=== PATIENT | male | born 1945 | race Caucasian/White ===

== ENCOUNTER 2018-01-20 02:00 | Inpatient (IN) | payer OTHER ==
[2018-01-20] MEDS: SOD CHLORIDE 0.9% 500 ML IV (02:18)
[2018-01-20] MEDS: METOCLOPRAMIDE 10 MG INJ IV (02:18)
[2018-01-20] MEDS: ONDANSETRON 4 MG INJ IV (02:18)
[2018-01-20 02:19] LABS: ADD MAN DIFF? NO
[2018-01-20 02:24] LABS: WHITE BLOOD COUNT 9.6 10^3/ul (4.8-10.8)
[2018-01-20 02:24] LABS: ABNORMAL IP MESSAGE 1; BASOPHIL # 0.1 10^3/ul (0.0-0.1); BASOPHILS % 0.9 % (0.0-2.0); EOSINOPHILS # 0.3 10^3/ul (0.0-0.5); EOSINOPHILS % 3.1 % (0.0-7.0); HEMATOCRIT 41.2 % (42.0-52.0); HEMOGLOBIN 13.8 g/dl (14.0-18.0); LYMPHOCYTES # 5.9 10^3/ul (0.8-2.9); LYMPHOCYTES % 60.9 % (15.0-51.0); MEAN CORPUSCULAR HEMOGLOBIN 32.6 pg (29.0-33.0); MEAN CORPUSCULAR HGB CONC 33.5 g/dl (32.0-37.0); MEAN CORPUSCULAR VOLUME 97.4 fl (82.0-101.0); MEAN PLATELET VOLUME 11.5 fl (7.4-10.4); MONOCYTE # 0.8 10^3/ul (0.3-0.9); MONOCYTES % 8.5 % (0.0-11.0); NEUTROPHIL # 2.5 10^3/ul (1.6-7.5); NEUTROPHILS % 26.1 % (39.0-77.0); PLATELET COUNT 199 10^3/UL (140-415); POSITIVE DIFF @See below; RED BLOOD COUNT 4.23 10^6/ul (4.70-6.10); RED CELL DISTRIBUTION WIDTH 12.9 % (11.5-14.5)
[2018-01-20 02:41] LABS: ALANINE AMINOTRANSFERASE 28 IU/L (13-69); ALKALINE PHOSPHATASE 52 IU/L (42-121); ANION GAP 6 (5-13); ASPARTATE AMINO TRANSFERASE 14 IU/L (15-46); BILIRUBIN,INDIRECT 0.3 mg/dl (0-1.1); BILIRUBIN,TOTAL 0.3 mg/dl (0.2-1.3); BLOOD UREA NITROGEN 11 mg/dl (7-20); CALCIUM 7.3 mg/dl (8.4-10.2); CARBON DIOXIDE 19 mmol/L (21-31); CHLORIDE 120 mmol/L (97-110); CREATININE 0.66 mg/dl (0.61-1.24); GLUCOSE 136 mg/dl (70-220); SODIUM 145 mmol/L (135-144); TOTAL PROTEIN 5.5 g/dl (6.1-8.1)
[2018-01-20 02:43] LABS: INR 0.97
[2018-01-20 02:46] LABS: LACTIC ACID 2.2 mmol/L (0.5-2.0)
[2018-01-20 02:53] LABS: TROPONIN-I < 0.012 ng/ml (0.000-0.120)
[2018-01-20] MEDS: CEFEPIME 2GM/50 ML (PMX) 50 ML IVPB (03:01)
[2018-01-20] MEDS: SODIUM CHLORIDE 0.9% 1L BAG IV* (03:01)
[2018-01-20] MEDS: VANCOMYCIN 1 GM (PMX) 250 ML IVPB (03:43)
[2018-01-20] MEDS ORDERED: SOD CHLORIDE 0.9% 1,000 ML IV (07:47)
[2018-01-20 08:00] LABS: LACTIC ACID 2.7 mmol/L (0.5-2.0)
[2018-01-20] MEDS ORDERED: DOCUSATE SODIUM 100 MG CAP PO (08:00)
[2018-01-20] MEDS ORDERED: ONDANSETRON 4 MG INJ IV (08:00)
[2018-01-20] MEDS ORDERED: NACL 0.9% 3 ML SYG IV (08:00)
[2018-01-20] MEDS: NS + KCL 20 MEQ 1,000 ML IV ×3 (09:51→23:07)
[2018-01-20 11:23] LABS: LACTIC ACID 2.2 mmol/L (0.5-2.0)
[2018-01-20] MEDS: CEFTRIAXONE 1 GM/50 ML (PMX) 50 ML IVPB (12:00)
[2018-01-20 13:03] LABS: ADD UMIC NO; UR ASCORBIC ACID NEGATIVE (NEGATIVE); UR BILIRUBIN (Dip) NEGATIVE (NEGATIVE); UR BLOOD (Dip) NEGATIVE (NEGATIVE); UR CLARITY CLEAR (CLEAR); UR COLOR STRAW (YELLOW); UR GLUCOSE (Dip) NEGATIVE (NEGATIVE); UR KETONES (Dip) NEGATIVE (NEGATIVE); UR LEUKOCYTE ESTERASE (Dip) NEGATIVE Leu/ul (NEGATIVE); UR NITRITE (Dip) NEGATIVE (NEGATIVE); UR SPECIFIC GRAVITY (Dip) 1.011 (1.003-1.030); UR TOTAL PROTEIN (Dip) NEGATIVE (NEGATIVE); UR UROBILINOGEN (Dip) NEGATIVE (NEGATIVE)
[2018-01-20] MEDS: POTASSIUM CHLORIDE 50 ML IVPB ×3 (14:02→16:44)
[2018-01-20] MEDS: MAGNESIUM SULFATE 2 GM/50 ML 50 ML IVPB (16:45)
[2018-01-20] MEDS: POTASSIUM CHLORIDE (SR) 10 MEQ TAB PO (17:26)
[2018-01-20] MEDS: TAMSULOSIN (SR) 0.4 MG CAP PO (21:51)
[2018-01-20] MEDS: ATORVASTATIN 20 MG TAB PO (21:51)
[2018-01-21] MEDS: NS + KCL 20 MEQ 1,000 ML IV ×2 (04:00→10:51)
[2018-01-21] MEDS ORDERED: EPHEDrine SULFATE 50 MG/5 ML SYG (07:00)
[2018-01-21] MEDS: ASPIRIN (EC) 81 MG TAB PO (08:34)
[2018-01-21] MEDS: OXYBUTYNIN (XL) 5 MG TAB PO (08:35)
[2018-01-21] MEDS: DONEPEZIL 5 MG TAB PO (08:35)
[2018-01-21 09:06] LABS: ADD MAN DIFF? NO
[2018-01-21 09:13] LABS: WHITE BLOOD COUNT 8.1 10^3/ul (4.8-10.8)
[2018-01-21 09:13] LABS: BASOPHIL # 0.1 10^3/ul (0.0-0.1); BASOPHILS % 0.9 % (0.0-2.0); EOSINOPHILS # 0.1 10^3/ul (0.0-0.5); EOSINOPHILS % 1.7 % (0.0-7.0); HEMATOCRIT 39.6 % (42.0-52.0); HEMOGLOBIN 13.4 g/dl (14.0-18.0); LYMPHOCYTES # 2.2 10^3/ul (0.8-2.9); LYMPHOCYTES % 27.3 % (15.0-51.0); MEAN CORPUSCULAR HEMOGLOBIN 32.8 pg (29.0-33.0); MEAN CORPUSCULAR HGB CONC 33.8 g/dl (32.0-37.0); MEAN CORPUSCULAR VOLUME 97.1 fl (82.0-101.0); MEAN PLATELET VOLUME 11.6 fl (7.4-10.4); MONOCYTE # 0.6 10^3/ul (0.3-0.9); MONOCYTES % 7.3 % (0.0-11.0); NEUTROPHIL # 5.1 10^3/ul (1.6-7.5); NEUTROPHILS % 62.6 % (39.0-77.0); PLATELET COUNT 169 10^3/UL (140-415); RED BLOOD COUNT 4.08 10^6/ul (4.70-6.10); RED CELL DISTRIBUTION WIDTH 13.2 % (11.5-14.5)
[2018-01-21 09:42] LABS: ALANINE AMINOTRANSFERASE 19 IU/L (13-69); ALBUMIN 3.8 g/dl (3.3-4.9); ALBUMIN/GLOBULIN RATIO 1.65; ALKALINE PHOSPHATASE 68 IU/L (42-121); ANION GAP 9 (5-13); ASPARTATE AMINO TRANSFERASE 23 IU/L (15-46); B-TYPE NATRIURETIC PEPTIDE 1210 PG/ML (0-125); BILIRUBIN,INDIRECT 0.4 mg/dl (0-1.1); BILIRUBIN,TOTAL 0.4 mg/dl (0.2-1.3); BLOOD UREA NITROGEN 9 mg/dl (7-20); CALCIUM 8.8 mg/dl (8.4-10.2); CARBON DIOXIDE 24 mmol/L (21-31); CHLORIDE 110 mmol/L (97-110); CHOL/HDL RATIO 5.4 RATIO; CHOLESTEROL 175 mg/dl (100-200); CREATININE 0.89 mg/dl (0.61-1.24); GLUCOSE 116 mg/dl (70-220); HDL CHOLESTEROL 32 mg/dl (31-75); LDL CHOLESTEROL,CALCULATED 118 mg/dl; POTASSIUM 4.9 mmol/L (3.5-5.1); SODIUM 143 mmol/L (135-144); TOTAL PROTEIN 6.1 g/dl (6.1-8.1); TRIGLYCERIDES 125 mg/dl (0-149)
[2018-01-21 09:51] LABS: FREE T4 (FREE THYROXINE) 0.83 ng/dl (0.78-2.44)
[2018-01-21] MEDS: CEFTRIAXONE 1 GM/50 ML (PMX) 50 ML IVPB (11:33)
[2018-01-21] MEDS ORDERED: ROCURONIUM 50 MG INJ (12:20)
[2018-01-21] MEDS ORDERED: GLYCOPYRROLATE 0.4 MG INJ ×2 (12:20→14:10)
[2018-01-21] MEDS ORDERED: NEOSTIGMINE 3 MG/3 ML SYRINGE ×2 (12:20→14:10)
[2018-01-21] MEDS ORDERED: LIDOCAINE 2% (SDV) 5 ML INJ (12:20)
[2018-01-21] MEDS ORDERED: PROPOFOL 20 ML (12:20)
[2018-01-21] MEDS ORDERED: SUCCINYLCHOLINE CHLORIDE 100 MG/5 ML SYG IV (12:20)
[2018-01-21] MEDS ORDERED: ONDANSETRON 4 MG INJ IV (13:30)
[2018-01-21] MEDS ORDERED: hydrALAzine 20 MG INJ IV (13:30)
[2018-01-21] MEDS ORDERED: EPHEDrine SULFATE 50 MG/5 ML SYG IV (13:30)
[2018-01-21] MEDS ORDERED: HYDROmorphONE 1 MG/5 ML IV SYRINGE IV ×2 (13:30)
[2018-01-21] MEDS ORDERED: OXYCODONE/ACETAMINOPHEN (5/325) TAB PO ×2 (13:30)
[2018-01-21] MEDS ORDERED: METOCLOPRAMIDE 10 MG INJ IV (13:30)
[2018-01-21] MEDS ORDERED: LABETALOL HCL 20MG INJ IV (13:30)
[2018-01-21] MEDS ORDERED: MIDAZOLAM 1 MG/ML 2 ML INJ IV (13:30)
[2018-01-21] MEDS ORDERED: DIPHENHYDRAMINE 50 MG INJ IV (13:30)
[2018-01-21] MEDS ORDERED: MEPERIDINE 25 MG INJ IV (13:30)
[2018-01-21] MEDS ORDERED: FENTAnyl 50 MCG/ML VIAL IV ×4 (13:30→18:30)
[2018-01-21] MEDS ORDERED: LIDOCAINE 2% 20 ML UROJET SYRINGE (13:51)
[2018-01-21] MEDS: LIDOCAINE 2% 20 ML UROJET SYRINGE (14:54)
[2018-01-21] MEDS: LIDOCAINE 2% (MDV) 20 ML INJ (14:55)
[2018-01-21] MEDS: IOHEXOL 300MG/ML 30 ML BTL (14:56)
[2018-01-21] MEDS: SOD CHLORIDE 0.9% 1,000 ML IV ×2 (15:55→21:30)
[2018-01-21] MEDS ORDERED: morphine (1 MG/ML) 10ML SYRINGE IV (18:30)
[2018-01-21] MEDS: HYDROmorphONE 1 MG/5 ML IV SYRINGE IV ×3 (18:38→18:47)
[2018-01-21] MEDS: DIPHENHYDRAMINE 50 MG INJ IV (18:51)
[2018-01-21] MEDS: ATORVASTATIN 20 MG TAB PO (21:14)
[2018-01-21] MEDS: TAMSULOSIN (SR) 0.4 MG CAP PO (21:14)
[2018-01-22] MEDS: SOD CHLORIDE 0.9% 1,000 ML IV ×3 (04:24→15:02)
[2018-01-22 06:16] LABS: ADD MAN DIFF? NO
[2018-01-22 06:25] LABS: BASOPHIL # 0.1 10^3/ul (0.0-0.1); BASOPHILS % 0.8 % (0.0-2.0); EOSINOPHILS # 0.2 10^3/ul (0.0-0.5); HEMOGLOBIN 11.7 g/dl (14.0-18.0); LYMPHOCYTES # 2.8 10^3/ul (0.8-2.9); LYMPHOCYTES % 36.7 % (15.0-51.0); MEAN CORPUSCULAR HEMOGLOBIN 32.2 pg (29.0-33.0); MEAN CORPUSCULAR HGB CONC 33.4 g/dl (32.0-37.0); MEAN CORPUSCULAR VOLUME 96.4 fl (82.0-101.0); MEAN PLATELET VOLUME 11.1 fl (7.4-10.4); MONOCYTE # 0.6 10^3/ul (0.3-0.9); MONOCYTES % 8.3 % (0.0-11.0); NEUTROPHILS % 51.9 % (39.0-77.0); PLATELET COUNT 150 10^3/UL (140-415); RED BLOOD COUNT 3.63 10^6/ul (4.70-6.10); RED CELL DISTRIBUTION WIDTH 12.8 % (11.5-14.5)
[2018-01-22 06:25] LABS: WHITE BLOOD COUNT 7.6 10^3/ul (4.8-10.8)
[2018-01-22 07:07] LABS: ANION GAP 6 (5-13); BLOOD UREA NITROGEN 13 mg/dl (7-20); CALCIUM 8.3 mg/dl (8.4-10.2); CARBON DIOXIDE 24 mmol/L (21-31); CHLORIDE 110 mmol/L (97-110); CREATININE 0.97 mg/dl (0.61-1.24); GLUCOSE 98 mg/dl (70-220); POTASSIUM 4.1 mmol/L (3.5-5.1); SODIUM 140 mmol/L (135-144)
[2018-01-22] MEDS: ASPIRIN (EC) 81 MG TAB PO (08:35)
[2018-01-22] MEDS: OXYBUTYNIN (XL) 5 MG TAB PO (08:35)
[2018-01-22] MEDS: DONEPEZIL 5 MG TAB PO (08:35)
[2018-01-22] MEDS: CEFTRIAXONE 1 GM/50 ML (PMX) 50 ML IVPB (12:50)
[2018-01-22] MEDS: TAMSULOSIN (SR) 0.4 MG CAP PO (20:57)
[2018-01-22] MEDS: ATORVASTATIN 20 MG TAB PO (20:57)
[2018-01-23] MEDS: SOD CHLORIDE 0.9% 1,000 ML IV ×2 (01:19→13:04)
[2018-01-23 06:12] LABS: ADD MAN DIFF? NO
[2018-01-23 06:19] LABS: BASOPHIL # 0.1 10^3/ul (0.0-0.1); BASOPHILS % 0.8 % (0.0-2.0); EOSINOPHILS # 0.2 10^3/ul (0.0-0.5); EOSINOPHILS % 2.9 % (0.0-7.0); HEMATOCRIT 35.5 % (42.0-52.0); HEMOGLOBIN 11.9 g/dl (14.0-18.0); LYMPHOCYTES # 2.9 10^3/ul (0.8-2.9); LYMPHOCYTES % 37.4 % (15.0-51.0); MEAN CORPUSCULAR HEMOGLOBIN 32.2 pg (29.0-33.0); MEAN CORPUSCULAR HGB CONC 33.5 g/dl (32.0-37.0); MEAN CORPUSCULAR VOLUME 96.2 fl (82.0-101.0); MEAN PLATELET VOLUME 11.3 fl (7.4-10.4); MONOCYTE # 0.7 10^3/ul (0.3-0.9); MONOCYTES % 8.7 % (0.0-11.0); NEUTROPHIL # 3.9 10^3/ul (1.6-7.5); NEUTROPHILS % 49.9 % (39.0-77.0); PLATELET COUNT 138 10^3/UL (140-415); POSITIVE DIFF @See below; RED BLOOD COUNT 3.69 10^6/ul (4.70-6.10); RED CELL DISTRIBUTION WIDTH 12.7 % (11.5-14.5)
[2018-01-23 06:19] LABS: WHITE BLOOD COUNT 7.8 10^3/ul (4.8-10.8)
[2018-01-23 07:00] LABS: ANION GAP 5 (5-13); BLOOD UREA NITROGEN 11 mg/dl (7-20); CALCIUM 8.4 mg/dl (8.4-10.2); CARBON DIOXIDE 24 mmol/L (21-31); CHLORIDE 111 mmol/L (97-110); CREATININE 0.87 mg/dl (0.61-1.24); GLUCOSE 114 mg/dl (70-220); POTASSIUM 3.8 mmol/L (3.5-5.1); SODIUM 140 mmol/L (135-144)
[2018-01-23] MEDS: MIDAZOLAM 1 MG/ML 2 ML INJ (07:36)
[2018-01-23] MEDS: PROPOFOL 20 ML ×2 (07:36)
[2018-01-23] MEDS: FENTAnyl 50 MCG/ML VIAL (07:36)
[2018-01-23] MEDS: IOHEXOL 300MG/ML 30 ML BTL (07:36)
[2018-01-23] MEDS: OXYBUTYNIN (XL) 5 MG TAB PO (08:34)
[2018-01-23] MEDS: DONEPEZIL 5 MG TAB PO (08:34)
[2018-01-23] MEDS: ASPIRIN (EC) 81 MG TAB PO (08:34)
[2018-01-23] MEDS: CEFTRIAXONE 1 GM/50 ML (PMX) 50 ML IVPB (12:08)
[2018-01-23] MEDS: TAMSULOSIN (SR) 0.4 MG CAP PO (20:57)
[2018-01-23] MEDS: ATORVASTATIN 20 MG TAB PO (20:59)
[2018-01-24] MEDS ORDERED: EPHEDrine SULFATE 50 MG/5 ML SYG (07:00)
[2018-01-24 07:14] LABS: ANION GAP 10 (5-13); BLOOD UREA NITROGEN 12 mg/dl (7-20); CALCIUM 8.8 mg/dl (8.4-10.2); CARBON DIOXIDE 23 mmol/L (21-31); CHLORIDE 107 mmol/L (97-110); CREATININE 0.81 mg/dl (0.61-1.24); GLUCOSE 118 mg/dl (70-220); POTASSIUM 3.7 mmol/L (3.5-5.1); SODIUM 140 mmol/L (135-144)
[2018-01-24] MEDS: ASPIRIN (EC) 81 MG TAB PO (09:36)
[2018-01-24] MEDS: DONEPEZIL 5 MG TAB PO (09:37)
[2018-01-24] MEDS: OXYBUTYNIN (XL) 5 MG TAB PO (09:37)
[2018-01-24] MEDS: SOD CHLORIDE 0.9% 1,000 ML IV (09:41)
[2018-01-24] MEDS: CEFTRIAXONE 1 GM/50 ML (PMX) 50 ML IVPB (12:56)
[2018-01-24] MEDS ORDERED: ONDANSETRON 4 MG INJ IV (17:30)
[2018-01-24] MEDS ORDERED: HYDROmorphONE 1 MG/5 ML IV SYRINGE IV ×3 (17:30)
[2018-01-24] MEDS ORDERED: PROPOFOL 40 ML (17:31)
[2018-01-24] MEDS ORDERED: MIDAZOLAM 1 MG/ML 2 ML INJ (17:31)
[2018-01-24] MEDS ORDERED: FENTAnyl 50 MCG/ML VIAL (17:32)
[2018-01-24] MEDS ORDERED: IOHEXOL 300MG/ML 30 ML BTL (17:54)
[2018-01-24] MEDS ORDERED: PHENYLephrine (100 MCG/ML) 5ML SYG (18:19)
[2018-01-24] MEDS: ATORVASTATIN 20 MG TAB PO (21:03)
[2018-01-24] MEDS: TAMSULOSIN (SR) 0.4 MG CAP PO (21:05)
[2018-01-25] MEDS: morphine 2 MG INJ IV (02:34)
[2018-01-25 06:54] LABS: ANION GAP 10 (5-13); BLOOD UREA NITROGEN 12 mg/dl (7-20); CALCIUM 8.6 mg/dl (8.4-10.2); CARBON DIOXIDE 25 mmol/L (21-31); CHLORIDE 104 mmol/L (97-110); CREATININE 0.81 mg/dl (0.61-1.24); GLUCOSE 100 mg/dl (70-220); POTASSIUM 3.6 mmol/L (3.5-5.1); SODIUM 139 mmol/L (135-144)
[2018-01-25] MEDS: DONEPEZIL 5 MG TAB PO (09:06)
[2018-01-25] MEDS: ASPIRIN (EC) 81 MG TAB PO (09:06)
[2018-01-25] MEDS: OXYBUTYNIN (XL) 5 MG TAB PO (09:06)
[2018-01-25] MEDS: SOD CHLORIDE 0.9% 1,000 ML IV ×2 (10:29→16:20)
[2018-01-25] MEDS: CEFTRIAXONE 1 GM/50 ML (PMX) 50 ML IVPB (11:41)
[2018-01-25] MEDS: ATORVASTATIN 20 MG TAB PO (20:55)
[2018-01-25] MEDS: TAMSULOSIN (SR) 0.4 MG CAP PO (20:55)
[2018-01-26] MEDS: DONEPEZIL 5 MG TAB PO (08:09)
[2018-01-26] MEDS: ASPIRIN (EC) 81 MG TAB PO (08:09)
[2018-01-26] MEDS: OXYBUTYNIN (XL) 5 MG TAB PO (08:09)
[2018-01-26] MEDS: SOD CHLORIDE 0.9% 1,000 ML IV (08:10)
[2018-01-26 08:43] LABS: ANION GAP 7 (5-13); BLOOD UREA NITROGEN 12 mg/dl (7-20); CALCIUM 8.8 mg/dl (8.4-10.2); CARBON DIOXIDE 24 mmol/L (21-31); CHLORIDE 106 mmol/L (97-110); CREATININE 0.84 mg/dl (0.61-1.24); GLUCOSE 113 mg/dl (70-220); SODIUM 137 mmol/L (135-144)
[2018-01-26] MEDS: CEFTRIAXONE 1 GM/50 ML (PMX) 50 ML IVPB (12:09)
[2018-01-26] MEDS ORDERED: MAGNESIUM HYDROXIDE 30ML CUP PO (13:30)
[2018-01-26] MEDS: MAGNESIUM HYDROXIDE 30ML CUP PO (13:44)
[2018-01-26] MEDS: ATORVASTATIN 20 MG TAB PO (20:15)
[2018-01-26] MEDS: TAMSULOSIN (SR) 0.4 MG CAP PO (20:15)
[2018-01-27] MEDS: SOD CHLORIDE 0.9% 1,000 ML IV ×2 (06:02→23:30)
[2018-01-27 07:10] LABS: ANION GAP 9 (5-13); BLOOD UREA NITROGEN 15 mg/dl (7-20); CARBON DIOXIDE 26 mmol/L (21-31); CHLORIDE 103 mmol/L (97-110); CREATININE 0.98 mg/dl (0.61-1.24); GLUCOSE 112 mg/dl (70-220); POTASSIUM 4.7 mmol/L (3.5-5.1); SODIUM 138 mmol/L (135-144)
[2018-01-27] MEDS: DONEPEZIL 5 MG TAB PO (09:34)
[2018-01-27] MEDS: OXYBUTYNIN (XL) 5 MG TAB PO (09:35)
[2018-01-27] MEDS: ASPIRIN (EC) 81 MG TAB PO (09:36)
[2018-01-27] MEDS: CEFTRIAXONE 1 GM/50 ML (PMX) 50 ML IVPB (12:07)
[2018-01-27] MEDS: TAMSULOSIN (SR) 0.4 MG CAP PO (20:52)
[2018-01-27] MEDS: ATORVASTATIN 20 MG TAB PO (20:52)
[2018-01-28] MEDS: morphine LIQ (10 MG/5 ML) CUP PO (02:18)
[2018-01-28] MEDS: SOD CHLORIDE 0.9% 1,000 ML IV (02:33)
[2018-01-28 06:05] LABS: ADD MAN DIFF? NO
[2018-01-28 06:13] LABS: BASOPHIL # 0.1 10^3/ul (0.0-0.1); EOSINOPHILS # 0.5 10^3/ul (0.0-0.5); EOSINOPHILS % 5.9 % (0.0-7.0); HEMATOCRIT 35.4 % (42.0-52.0); LYMPHOCYTES # 1.7 10^3/ul (0.8-2.9); LYMPHOCYTES % 21.4 % (15.0-51.0); MEAN CORPUSCULAR HEMOGLOBIN 32.1 pg (29.0-33.0); MEAN CORPUSCULAR HGB CONC 33.9 g/dl (32.0-37.0); MEAN CORPUSCULAR VOLUME 94.7 fl (82.0-101.0); MEAN PLATELET VOLUME 10.9 fl (7.4-10.4); MONOCYTE # 0.9 10^3/ul (0.3-0.9); MONOCYTES % 11.8 % (0.0-11.0); NEUTROPHIL # 4.6 10^3/ul (1.6-7.5); NEUTROPHILS % 59.3 % (39.0-77.0); PLATELET COUNT 176 10^3/UL (140-415); RED BLOOD COUNT 3.74 10^6/ul (4.70-6.10); RED CELL DISTRIBUTION WIDTH 12.6 % (11.5-14.5)
[2018-01-28 06:13] LABS: WHITE BLOOD COUNT 7.7 10^3/ul (4.8-10.8)
[2018-01-28 06:53] LABS: MAGNESIUM 1.9 mg/dl (1.7-2.5)
[2018-01-28 06:53] LABS: PHOSPHORUS 3.9 mg/dl (2.5-4.9)
[2018-01-28 07:32] LABS: ANION GAP 11 (5-13); BLOOD UREA NITROGEN 14 mg/dl (7-20); CARBON DIOXIDE 22 mmol/L (21-31); CHLORIDE 105 mmol/L (97-110); CREATININE 0.85 mg/dl (0.61-1.24); GLUCOSE 118 mg/dl (70-220); POTASSIUM 4.3 mmol/L (3.5-5.1); SODIUM 138 mmol/L (135-144)
[2018-01-28] MEDS: ASPIRIN (EC) 81 MG TAB PO (08:52)
[2018-01-28] MEDS: DONEPEZIL 5 MG TAB PO (08:53)
[2018-01-28] MEDS: OXYBUTYNIN (XL) 5 MG TAB PO (08:53)
[2018-01-28] MEDS: CEFTRIAXONE 1 GM/50 ML (PMX) 50 ML IVPB (12:15)
== END 2018-01-28 16:05 | disposition home health service (06) | DRG 669 ==
LOC: PP2 01-23 16:27 → E/R 02:00 → TEL 07:53
PROC: 0TC78ZZ Extirpation of Matter from Left Ureter, Via Natural or Artificial Opening Endoscopic (ICD-10-PCS; principal; 2018-01-21 12:28)
PROC: 0T9430Z Drainage of Left Kidney Pelvis with Drainage Device, Percutaneous Approach (ICD-10-PCS; 2018-01-21 12:28)
PROC: 0T773DZ Dilation of Left Ureter with Intraluminal Device, Percutaneous Approach (ICD-10-PCS; 2018-01-21 12:28)
PROC: 0T25X0Z Change Drainage Device in Kidney, External Approach (ICD-10-PCS; 2018-01-21 12:28)
DX: N13.2 Hydronephrosis with renal and ureteral calculous obstruction (principal); E87.2 Acidosis; E87.6 Hypokalemia; I10 Essential (primary) hypertension; I25.10 Atherosclerotic heart disease of native coronary artery without angina pectoris; F03.90 Unspecified dementia, unspecified severity, without behavioral disturbance, psychotic disturbance, mood disturbance, and anxiety; I25.2 Old myocardial infarction; E78.5 Hyperlipidemia, unspecified; N13.1 Hydronephrosis with ureteral stricture, not elsewhere classified; K59.00 Constipation, unspecified; Z86.73 Personal history of transient ischemic attack (TIA), and cerebral infarction without residual deficits; Z95.1 Presence of aortocoronary bypass graft
CPT/HCPCS: 70450; 71045; 74018; 74176; 74475; 77012; 80048; 80053; 80061; 81003; 83605; 83735; 83880; 84100; 84439; 84443; 84484; 85025; 85610; 85730; 87040; 87086; 88300; 93005; 93306; 97110; 97116; 97163

== ENCOUNTER 2018-03-20 10:27 | Observation (INO) | payer OTHER ==
[2018-03-20 13:22] LABS: ADD MAN DIFF? NO
[2018-03-20 13:26] LABS: BASOPHIL # 0.1 10^3/ul (0.0-0.1); BASOPHILS % 0.6 % (0.0-2.0); EOSINOPHILS # 0.3 10^3/ul (0.0-0.5); EOSINOPHILS % 3.5 % (0.0-7.0); HEMATOCRIT 42.6 % (42.0-52.0); HEMOGLOBIN 13.8 g/dl (14.0-18.0); LYMPHOCYTES # 2.6 10^3/ul (0.8-2.9); LYMPHOCYTES % 31.1 % (15.0-51.0); MEAN CORPUSCULAR HEMOGLOBIN 31.2 pg (29.0-33.0); MEAN CORPUSCULAR HGB CONC 32.4 g/dl (32.0-37.0); MEAN CORPUSCULAR VOLUME 96.2 fl (82.0-101.0); MEAN PLATELET VOLUME 9.9 fl (7.4-10.4); MONOCYTE # 0.8 10^3/ul (0.3-0.9); MONOCYTES % 9.9 % (0.0-11.0); NEUTROPHIL # 4.6 10^3/ul (1.6-7.5); NEUTROPHILS % 54.5 % (39.0-77.0); PLATELET COUNT 227 10^3/UL (140-415); RED BLOOD COUNT 4.43 10^6/ul (4.70-6.10); RED CELL DISTRIBUTION WIDTH 12.7 % (11.5-14.5)
[2018-03-20 13:26] LABS: WHITE BLOOD COUNT 8.4 10^3/ul (4.8-10.8)
[2018-03-20] MEDS: LACTATED RINGER'S 1,000 ML IV (13:33)
[2018-03-20] MEDS: KETOROLAC 15 MG INJ IV (13:33)
[2018-03-20 13:45] LABS: INR 0.98; PROTIME 13.1 Sec (11.9-14.9)
[2018-03-20 13:46] LABS: PARTIAL THROMBOPLASTIN TIME 34.5 Sec (23.0-35.0)
[2018-03-20 14:33] LABS: ALANINE AMINOTRANSFERASE 12 IU/L (13-69); ALBUMIN 4.5 g/dl (3.3-4.9); ALBUMIN/GLOBULIN RATIO 1.18; ALKALINE PHOSPHATASE 134 IU/L (42-121); ANION GAP 12 (5-13); ASPARTATE AMINO TRANSFERASE 20 IU/L (15-46); BILIRUBIN,INDIRECT 0.3 mg/dl (0-1.1); BILIRUBIN,TOTAL 0.3 mg/dl (0.2-1.3); BLOOD UREA NITROGEN 16 mg/dl (7-20); CALCIUM 9.9 mg/dl (8.4-10.2); CARBON DIOXIDE 26 mmol/L (21-31); CHLORIDE 105 mmol/L (97-110); CREATININE 0.91 mg/dl (0.61-1.24); GLUCOSE 101 mg/dl (70-220); LIPASE 54 U/L (23-300); POTASSIUM 4.2 mmol/L (3.5-5.1); SODIUM 143 mmol/L (135-144); TOTAL PROTEIN 8.3 g/dl (6.1-8.1)
[2018-03-20] MEDS: CEFEPIME 1GM/50 ML (PMX) 50 ML IVPB (14:46)
[2018-03-20] MEDS: SOD CHLORIDE 0.9% 1,000 ML IV ×2 (14:46→19:03)
[2018-03-20 15:23] LABS: ADD UMIC YES; UR ASCORBIC ACID NEGATIVE (NEGATIVE); UR BACTERIA FEW /HPF (NONE SEEN); UR BILIRUBIN (Dip) NEGATIVE (NEGATIVE); UR BLOOD (Dip) 2+ mg/dL (NEGATIVE); UR CLARITY CLOUDY (CLEAR); UR COLOR YELLOW (YELLOW); UR GLUCOSE (Dip) NEGATIVE (NEGATIVE); UR KETONES (Dip) NEGATIVE (NEGATIVE); UR LEUKOCYTE ESTERASE (Dip) 3+ Leu/ul (NEGATIVE); UR NITRITE (Dip) POSITIVE (NEGATIVE); UR RBC 110 /HPF (0-5); UR SPECIFIC GRAVITY (Dip) 1.017 (1.003-1.030); UR TOTAL PROTEIN (Dip) 2+ mg/dl (NEGATIVE); UR UROBILINOGEN (Dip) NEGATIVE (NEGATIVE); UR WBC > 182 /HPF (0-5)
[2018-03-20] MEDS ORDERED: ACETAMINOPHEN 325 MG TAB PO (19:00)
[2018-03-20] MEDS ORDERED: ONDANSETRON 4 MG INJ IV (19:00)
[2018-03-21] MEDS ORDERED: ONDANSETRON 4 MG INJ IV (00:30)
[2018-03-21] MEDS ORDERED: morphine 2 MG INJ IV (00:30)
[2018-03-21] MEDS ORDERED: ACETAMINOPHEN 325 MG TAB PO (00:30)
[2018-03-21] MEDS ORDERED: KETOROLAC 30 MG INJ IV (00:30)
[2018-03-21] MEDS: LEVOFLOXACIN 500 MG TAB PO (01:19)
[2018-03-21 05:26] LABS: ADD MAN DIFF? NO
[2018-03-21 05:31] LABS: WHITE BLOOD COUNT 7.7 10^3/ul (4.8-10.8)
[2018-03-21 05:31] LABS: BASOPHIL # 0.1 10^3/ul (0.0-0.1); BASOPHILS % 0.8 % (0.0-2.0); EOSINOPHILS # 0.2 10^3/ul (0.0-0.5); EOSINOPHILS % 2.9 % (0.0-7.0); HEMATOCRIT 36.8 % (42.0-52.0); LYMPHOCYTES # 1.7 10^3/ul (0.8-2.9); MEAN CORPUSCULAR HEMOGLOBIN 31.3 pg (29.0-33.0); MEAN CORPUSCULAR HGB CONC 32.6 g/dl (32.0-37.0); MEAN CORPUSCULAR VOLUME 95.8 fl (82.0-101.0); MEAN PLATELET VOLUME 10.5 fl (7.4-10.4); MONOCYTE # 0.7 10^3/ul (0.3-0.9); MONOCYTES % 8.7 % (0.0-11.0); NEUTROPHILS % 65.2 % (39.0-77.0); PLATELET COUNT 190 10^3/UL (140-415); RED BLOOD COUNT 3.84 10^6/ul (4.70-6.10); RED CELL DISTRIBUTION WIDTH 12.7 % (11.5-14.5)
[2018-03-21 05:50] LABS: ALANINE AMINOTRANSFERASE 11 IU/L (13-69); ALBUMIN 3.4 g/dl (3.3-4.9); ALKALINE PHOSPHATASE 94 IU/L (42-121); ANION GAP 13 (5-13); ASPARTATE AMINO TRANSFERASE 27 IU/L (15-46); BILIRUBIN,INDIRECT 0.6 mg/dl (0-1.1); BILIRUBIN,TOTAL 0.6 mg/dl (0.2-1.3); BLOOD UREA NITROGEN 13 mg/dl (7-20); CALCIUM 8.6 mg/dl (8.4-10.2); CARBON DIOXIDE 22 mmol/L (21-31); CHLORIDE 106 mmol/L (97-110); CHOL/HDL RATIO 4.2 RATIO; CHOLESTEROL 127 mg/dl (100-200); CREATININE 0.77 mg/dl (0.61-1.24); GLUCOSE 112 mg/dl (70-220); HDL CHOLESTEROL 30 mg/dl (31-75); LDL CHOLESTEROL,CALCULATED 78 mg/dl; POTASSIUM 4.1 mmol/L (3.5-5.1); SODIUM 141 mmol/L (135-144); TOTAL PROTEIN 6.8 g/dl (6.1-8.1); TRIGLYCERIDES 94 mg/dl (0-149)
[2018-03-21 05:52] LABS: ALANINE AMINOTRANSFERASE 12 IU/L (13-69); ALBUMIN 3.5 g/dl (3.3-4.9); ALKALINE PHOSPHATASE 100 IU/L (42-121); ASPARTATE AMINO TRANSFERASE 20 IU/L (15-46); BILIRUBIN,INDIRECT 0.5 mg/dl (0-1.1); BILIRUBIN,TOTAL 0.5 mg/dl (0.2-1.3); TOTAL PROTEIN 6.6 g/dl (6.1-8.1)
[2018-03-21] MEDS: CEFTRIAXONE 1 GM/50 ML (PMX) 50 ML IVPB (09:18)
[2018-03-21] MEDS: FAMOTIDINE 20 MG TAB PO (09:19)
[2018-03-21] MEDS: BENAZEPRIL 40 MG TAB PO (09:19)
[2018-03-21] MEDS: DONEPEZIL 5 MG TAB PO (09:20)
[2018-03-21] MEDS ORDERED: TAMSULOSIN (SR) 0.4 MG CAP PO (21:00)
[2018-03-21] MEDS ORDERED: ATORVASTATIN 20 MG TAB PO (21:00)
== END 2018-03-21 15:20 | disposition home health service (06) ==
LOC: E/R 10:27 → 2NE 18:06
DX: T83.511A Infection and inflammatory reaction due to indwelling urethral catheter, initial encounter (principal); N39.0 Urinary tract infection, site not specified; Y84.6 Urinary catheterization as the cause of abnormal reaction of the patient, or of later complication, without mention of misadventure at the time of the procedure; N40.1 Benign prostatic hyperplasia with lower urinary tract symptoms; I10 Essential (primary) hypertension; E78.5 Hyperlipidemia, unspecified; Z93.6 Other artificial openings of urinary tract status
CPT/HCPCS: 36415; 74176; 80053; 80061; 80076; 81001; 83690; 85025; 85610; 85730; 87086; 96374; 96375; 99285-25; G0378

== ENCOUNTER 2018-03-28 10:30 | Day surgery (SDC) | payer OTHER ==
[~2018-03-28 10:30] MED LIST: MIDAZOLAM 1 MG/ML 2 ML INJ; SEVOFLURANE 15 MIN
[2018-03-28] MEDS ORDERED: FENTAnyl 50 MCG/ML VIAL (12:44)
[2018-03-28] MEDS ORDERED: EPHEDrine SULFATE 50 MG/5 ML SYG (12:57)
[2018-03-28] MEDS ORDERED: CEFAZOLIN 1 GM INJ (12:58)
[2018-03-28] MEDS ORDERED: ROCURONIUM 50 MG INJ ×2 (12:58→14:05)
[2018-03-28] MEDS ORDERED: PROPOFOL 20 ML (12:58)
[2018-03-28] MEDS ORDERED: HYDROmorphONE 1 MG/5 ML IV SYRINGE IV ×3 (13:00)
[2018-03-28] MEDS ORDERED: LABETALOL HCL 20MG INJ IV (13:00)
[2018-03-28] MEDS ORDERED: FENTAnyl 50 MCG/ML VIAL IV ×3 (13:00)
[2018-03-28] MEDS ORDERED: MEPERIDINE 25 MG INJ IV (13:00)
[2018-03-28] MEDS ORDERED: ONDANSETRON 4 MG INJ IV (13:00)
[2018-03-28] MEDS ORDERED: hydrALAzine 20 MG INJ IV (13:00)
[2018-03-28] MEDS ORDERED: METOCLOPRAMIDE 10 MG INJ IV (13:00)
[2018-03-28] MEDS ORDERED: EPHEDrine SULFATE 50 MG/5 ML SYG IV (13:00)
[2018-03-28] MEDS ORDERED: DIPHENHYDRAMINE 50 MG INJ IV (13:00)
[2018-03-28] MEDS ORDERED: OXYCODONE/ACETAMINOPHEN (5/325) TAB PO (13:00)
[2018-03-28] MEDS ORDERED: DEXAMETHASONE 4 MG/ML 5 ML INJ (13:20)
[2018-03-28] MEDS ORDERED: ONDANSETRON 4 MG INJ (13:20)
[2018-03-28] MEDS ORDERED: METOCLOPRAMIDE 10 MG INJ (13:20)
[2018-03-28] MEDS ORDERED: KETOROLAC 30 MG INJ (13:20)
[2018-03-28] MEDS ORDERED: NEOSTIGMINE 3 MG/3 ML SYRINGE (14:19)
[2018-03-28] MEDS ORDERED: GLYCOPYRROLATE 0.4 MG INJ (14:19)
[2018-03-28] MEDS ORDERED: HYDROCODONE/APAP (5/325) TAB PO (15:00)
== END 2018-03-28 16:44 | disposition home or self-care (01) ==
LOC: SDS 10:30
DX: N20.1 Calculus of ureter (principal)
CPT/HCPCS: 52353; 74430; 87086; 88300

== ENCOUNTER 2018-05-08 12:15 | Inpatient (IN) | payer OTHER ==
[2018-05-08 12:45] LABS: ADD MAN DIFF? NO
[2018-05-08 12:53] LABS: WHITE BLOOD COUNT 8.8 10^3/ul (4.8-10.8)
[2018-05-08 12:53] LABS: BASOPHIL # 0.1 10^3/ul (0.0-0.1); BASOPHILS % 0.8 % (0.0-2.0); EOSINOPHILS # 0.1 10^3/ul (0.0-0.5); EOSINOPHILS % 0.9 % (0.0-7.0); HEMATOCRIT 42.2 % (42.0-52.0); LYMPHOCYTES # 3.5 10^3/ul (0.8-2.9); LYMPHOCYTES % 39.6 % (15.0-51.0); MEAN CORPUSCULAR HEMOGLOBIN 30.7 pg (29.0-33.0); MEAN CORPUSCULAR HGB CONC 33.2 g/dl (32.0-37.0); MEAN CORPUSCULAR VOLUME 92.5 fl (82.0-101.0); MEAN PLATELET VOLUME 10.2 fl (7.4-10.4); MONOCYTE # 0.5 10^3/ul (0.3-0.9); MONOCYTES % 5.4 % (0.0-11.0); NEUTROPHIL # 4.6 10^3/ul (1.6-7.5); NEUTROPHILS % 52.5 % (39.0-77.0); PLATELET COUNT 208 10^3/UL (140-415); RED BLOOD COUNT 4.56 10^6/ul (4.70-6.10); RED CELL DISTRIBUTION WIDTH 13.2 % (11.5-14.5)
[2018-05-08 13:11] LABS: INR 0.92; PROTIME 12.5 Sec (11.9-14.9)
[2018-05-08 13:12] LABS: PARTIAL THROMBOPLASTIN TIME 30.3 Sec (23.0-35.0)
[2018-05-08 13:16] LABS: ANION GAP 10 (5-13); BLOOD UREA NITROGEN 13 mg/dl (7-20); CALCIUM 9.5 mg/dl (8.4-10.2); CARBON DIOXIDE 22 mmol/L (21-31); CHLORIDE 108 mmol/L (97-110); CHOL/HDL RATIO 4.7 RATIO; CHOLESTEROL 161 mg/dl (100-200); CREATINE KINASE 50 IU/L (23-200); CREATININE 0.74 mg/dl (0.61-1.24); GLUCOSE 168 mg/dl (70-220); HDL CHOLESTEROL 34 mg/dl (31-75); LDL CHOLESTEROL,CALCULATED 101 mg/dl; POTASSIUM 4.3 mmol/L (3.5-5.1); SODIUM 140 mmol/L (135-144); TRIGLYCERIDES 129 mg/dl (0-149)
[2018-05-08 13:18] LABS: HEMOGLOBIN A1C 6.4 % (0-5.9)
[2018-05-08 13:20] LABS: ALANINE AMINOTRANSFERASE 36 IU/L (13-69); ALKALINE PHOSPHATASE 118 IU/L (42-121); ASPARTATE AMINO TRANSFERASE 28 IU/L (15-46); BILIRUBIN,INDIRECT 0.2 mg/dl (0-1.1); BILIRUBIN,TOTAL 0.2 mg/dl (0.2-1.3); ETHANOL < 10.0 mg/dl (0-0); LIPASE 73 U/L (23-300); TOTAL PROTEIN 6.9 g/dl (6.1-8.1)
[2018-05-08 13:27] LABS: CK INDEX 0.4; CK-MB < 0.22 ng/ml (0.0-2.4); TROPONIN-I < 0.012 ng/ml (0.000-0.120)
[2018-05-08] MEDS: SOD CHLORIDE 0.9% 1,000 ML IV (13:30)
[2018-05-08] MEDS: ONDANSETRON 4 MG INJ IV ×2 (13:30→19:13)
[2018-05-08 16:54] LABS: ADD UMIC YES; UR ASCORBIC ACID NEGATIVE (NEGATIVE); UR BACTERIA MODERATE /HPF (NONE SEEN); UR BILIRUBIN (Dip) NEGATIVE (NEGATIVE); UR BLOOD (Dip) 1+ mg/dL (NEGATIVE); UR CLARITY CLEAR (CLEAR); UR COLOR YELLOW (YELLOW); UR GLUCOSE (Dip) NEGATIVE (NEGATIVE); UR KETONES (Dip) NEGATIVE (NEGATIVE); UR LEUKOCYTE ESTERASE (Dip) 1+ Leu/ul (NEGATIVE); UR NITRITE (Dip) NEGATIVE (NEGATIVE); UR RBC 3 /HPF (0-5); UR SPECIFIC GRAVITY (Dip) 1.016 (1.003-1.030); UR TOTAL PROTEIN (Dip) NEGATIVE (NEGATIVE); UR UROBILINOGEN (Dip) NEGATIVE (NEGATIVE); UR WBC 18 /HPF (0-5)
[2018-05-08 17:15] LABS: AMPHETAMINE/METHAMPHETAMINE Negative (NEGATIVE); BARBITURATES Negative (NEGATIVE); BENZODIAZEPINES Negative (NEGATIVE); CANNABINOIDS Negative (NEGATIVE); COCAINE Negative (NEGATIVE); OPIATES Negative (NEGATIVE)
[2018-05-08] MEDS ORDERED: ONDANSETRON 4 MG INJ IV (17:30)
[2018-05-08] MEDS ORDERED: ACETAMINOPHEN 325 MG TAB PO (17:30)
[2018-05-08] MEDS ORDERED: NACL 0.9% 3 ML SYG IV (17:30)
[2018-05-08] MEDS: FAMOTIDINE 20 MG INJ IV (22:27)
[2018-05-08] MEDS: D5W-0.45 NACL + KCL 10 MEQ 1,000 ML IV (22:27)
[2018-05-08] MEDS: CEFTRIAXONE 1 GM/50 ML (PMX) 50 ML IVPB (22:27)
[2018-05-09 05:59] LABS: ADD MAN DIFF? NO
[2018-05-09 06:02] LABS: BASOPHIL # 0.1 10^3/ul (0.0-0.1); EOSINOPHILS # 0.2 10^3/ul (0.0-0.5); EOSINOPHILS % 2.7 % (0.0-7.0); HEMATOCRIT 39.6 % (42.0-52.0); HEMOGLOBIN 12.9 g/dl (14.0-18.0); LYMPHOCYTES # 2.6 10^3/ul (0.8-2.9); LYMPHOCYTES % 40.8 % (15.0-51.0); MEAN CORPUSCULAR HEMOGLOBIN 30.4 pg (29.0-33.0); MEAN CORPUSCULAR HGB CONC 32.6 g/dl (32.0-37.0); MEAN CORPUSCULAR VOLUME 93.2 fl (82.0-101.0); MEAN PLATELET VOLUME 10.2 fl (7.4-10.4); MONOCYTE # 0.5 10^3/ul (0.3-0.9); MONOCYTES % 8.1 % (0.0-11.0); NEUTROPHILS % 47.1 % (39.0-77.0); PLATELET COUNT 188 10^3/UL (140-415); RED BLOOD COUNT 4.25 10^6/ul (4.70-6.10); RED CELL DISTRIBUTION WIDTH 13.2 % (11.5-14.5)
[2018-05-09 06:02] LABS: WHITE BLOOD COUNT 6.3 10^3/ul (4.8-10.8)
[2018-05-09 06:12] LABS: HEMOGLOBIN A1C 6.4 % (0-5.9)
[2018-05-09] MEDS: D5W-0.45 NACL + KCL 10 MEQ 1,000 ML IV ×2 (08:29→14:00)
[2018-05-09] MEDS: CLOPIDOGREL 75 MG TAB PO (09:00)
[2018-05-09] MEDS: HYDROCHLOROTHIAZIDE 12.5 MG CAP PO (10:03)
[2018-05-09] MEDS: DONEPEZIL 5 MG TAB PO (10:03)
[2018-05-09] MEDS: BENAZEPRIL 40 MG TAB PO (10:04)
[2018-05-09] MEDS: FAMOTIDINE 20 MG TAB PO ×2 (10:04→20:25)
[2018-05-09] MEDS: FERROUS SULFATE (EC) 325 MG TAB PO (10:04)
[2018-05-09] MEDS: APIXABAN 5 MG TABLET PO ×2 (10:06→20:25)
[2018-05-09] MEDS: ATORVASTATIN 20 MG TAB PO (20:25)
[2018-05-09] MEDS: TAMSULOSIN (SR) 0.4 MG CAP PO (20:25)
[2018-05-10] MEDS: D5W-0.45 NACL + KCL 10 MEQ 1,000 ML IV ×2 (00:24→10:00)
[2018-05-10] MEDS: BENAZEPRIL 40 MG TAB PO (08:34)
[2018-05-10] MEDS: FAMOTIDINE 20 MG TAB PO (08:34)
[2018-05-10] MEDS: DONEPEZIL 5 MG TAB PO (08:34)
[2018-05-10] MEDS: FERROUS SULFATE (EC) 325 MG TAB PO (08:34)
[2018-05-10] MEDS: CLOPIDOGREL 75 MG TAB PO (08:35)
[2018-05-10] MEDS: APIXABAN 5 MG TABLET PO (08:35)
[2018-05-10] MEDS: HYDROCHLOROTHIAZIDE 12.5 MG CAP PO (08:35)
[2018-05-10] MEDS: SOD CHLORIDE 0.9% 100 ML (11:30)
[2018-05-10] MEDS: IOHEXOL 100 ML (11:30)
[2018-05-10] MEDS: ASPIRIN (EC) 81 MG TAB PO (14:20)
== END 2018-05-10 18:15 | disposition home health service (06) | DRG 65 ==
LOC: E/R 12:15 → 6WM 17:15
DX: I63.40 Cerebral infarction due to embolism of unspecified cerebral artery (principal); G81.91 Hemiplegia, unspecified affecting right dominant side; R47.1 Dysarthria and anarthria; R29.703 NIHSS score 3; Z87.891 Personal history of nicotine dependence; I10 Essential (primary) hypertension; E78.5 Hyperlipidemia, unspecified; I25.10 Atherosclerotic heart disease of native coronary artery without angina pectoris; F01.50 Vascular dementia, unspecified severity, without behavioral disturbance, psychotic disturbance, mood disturbance, and anxiety; R00.2 Palpitations; Z79.02 Long term (current) use of antithrombotics/antiplatelets
CPT/HCPCS: 36415; 70450; 70498; 70551; 71045; 80048; 80061; 80076; 80307; 81001; 82550; 82553; 82962; 83036; 83690; 84484; 85025; 85610; 85730; 87081; 92610; 93005; 93306; 93880; 95819; 96374; 97110; 97116; 97162; 97530; 99291-25